=== PATIENT | male | born 1950 | race Caucasian/White ===

== ENCOUNTER 2016-08-21 06:20 | Day surgery (SDC) | payer OTHER ==
[~2016-08-21 06:20] MED LIST: ADVIL COLD & S1 EAC2 PO; COLACE100 M1 PO; FLOMAX0.4 M1 PO; GLUCOSAMINE CH1 EAC8 PO; HUMALOG100 UNIT/2; HUMALOG100 UNITS/; IBUPROFEN200 M2 PO; LANTUS100 UNITS/ SC; MACROBID 100 M100 M1 PO; MAGNESIUM CITR100 M1 PO; MEDS; MULTIVITAMINS1 EAC6 PO; NORCO 5-325 TA1 EACH PO; STOP THE FOLLOWING:; TRIAMCINOLONE A15 G2 TP; TYLENOL EXTRA500 M1 PO
== END 2016-08-21 16:30 ==
LOC: SHSB 06:20 → ORW 09:54 → PACU 11:12 → SHSB 12:05
PROC: 0YU50JZ Supplement Right Inguinal Region with Synthetic Substitute, Open Approach (ICD-10-PCS; principal; 2016-08-21)
DX: K40.90 Unilateral inguinal hernia, without obstruction or gangrene, not specified as recurrent (principal); E11.9 Type 2 diabetes mellitus without complications; K21.9 Gastro-esophageal reflux disease without esophagitis; Z79.4 Long term (current) use of insulin; Z79.899 Other long term (current) drug therapy; Z88.1 Allergy status to other antibiotic agents; Z91.040 Latex allergy status; Z85.46 Personal history of malignant neoplasm of prostate; Z90.79 Acquired absence of other genital organ(s); Z98.52 Vasectomy status; Z98.890 Other specified postprocedural states
CPT/HCPCS: C1781; J0690; J3010